=== PATIENT | male | born 1950 ===

== ENCOUNTER → 2022-02-05 11:51 | Outpatient (CLI) | payer MEDICARE, SELFPAY ==
--- NOTE | ~2022-02-05 | MR_ITS ---
EXAMINATION: MR abdomen wo/w con DATE: 02/05/2022 13:25 INDICATION: Other specified disorders of kidney and ureter. TECHNIQUE: Magnetic resonance imaging (MRI) of the abdomen was performed without and with 20 mL Multi Bulmaro intravenous contrast. COMPARISON: None. FINDINGS: There is diffuse hepatic steatosis. There are gallstones in the gallbladder, which is normal in size. The spleen, pancreas, and left adrenal gland are normal. There is a 2.1 cm mass in right adrenal gla nd containing fat, consistent with a myelolipoma. There is cortical thinning of the kidneys. There ar e cysts in the kidneys measuring up to 2.6 cm on the left. There are hemorrhagic cysts in the kidneys measuring up to 2.0 cm on the right. There are no dilated loops of bowel. There are no pathologicall y enlarged lymph nodes. There is no free intraperitoneal fluid. IMPRESSION: 1. Benign cysts and hemorrhagic cysts in the kidneys. Reviewed, dictated and finalized at location A. [employer]
== END ==
PROVIDERS: PCP Internal Medicine; Visit Provider Urology
DX: N28.89 Other specified disorders of kidney and ureter (principal); N28.1 Cyst of kidney, acquired
CPT/HCPCS: 74183; A9577